=== PATIENT | female | born 1965 | race Hispanic/Latino ===

== ENCOUNTER 2019-04-25 11:53 | Outpatient (CLI) | payer OTHER ==
[2019-04-25 13:31] LABS: #Eosinphils 0.2 thou/uL (0.0-0.7); #Lymphocytes 1.4 thou/uL (1.20-3.40); #Monocytes 0.3 thou/uL (0.11-0.59); #Neutrophils 3.1 thou/uL (1.40-6.50); %Basophils 0.2 % (0.0-1.0); %Eosinophils 3.9 % (0.0-10.0); %Lymphocytes 27.5 % (21.0-51.0); %Monocytes 6.3 % (0.0-10.0); Hemoglobin 13.8 g/dL (12.0-16.0); Mean Corpuscular HGB CONC 32.7 g/dL (32.0-36.0); Mean Corpuscular Hemoglobin 30.3 pg (27.0-31.0); Mean Corpuscular Volume 92.4 fL (78.0-98.0); Mean Platelet Volume 9.3 fL (7.4-10.4); Platelet Count 144 thou/uL (130-400); RBC Distribution Width 11.9 % (11.5-14.5); Red Blood Cell (RBC) Count 4.56 mill/uL (4.20-5.40)
[2019-04-25 13:48] LABS: Anion Gap 7 mmol/L (10-20); BUN (Urea Nitrogen) 18 mg/dL (9.8-20.1); Calc. Creatinine Clearance 0 mL/min (70-130); Calcium 9.5 mg/dL (7.8-10.44); Carbon Dioxide 32 mmol/L (22-29); Chloride 105 mmol/L (98-107); Estimated GFR-MDRD Greater than 90; Glucose 104 mg/dL (70-105); Potassium 3.8 mmol/L (3.5-5.1); Sodium 140 mmol/L (136-145)
== END 2019-04-25 11:54 | disposition home or self-care (01) ==
LOC: LABBT 11:53
PROVIDERS: ATTEND Surgery
DX: Z01.812 Encounter for preprocedural laboratory examination (principal); K40.90 Unilateral inguinal hernia, without obstruction or gangrene, not specified as recurrent; K42.9 Umbilical hernia without obstruction or gangrene
CPT/HCPCS: 80048; 85025

== ENCOUNTER 2019-05-06 11:31 | Day surgery (SDC) | payer OTHER ==
[2019-04-25 12:12] VITALS: BMI 24.1
[~2019-05-06 11:31] MED LIST: Dexamethasone 20 MG/5 ML VIAL ONE; Lidocaine 1% PF 5 ML VIAL ONE; Ondansetron PF 4 MG/2 ML Vial ONE; PHENYLEPHRINE-NS 100 MCG/ML 10 ML SYRINGE ONE; PROPOFOL 200 MG/20 ML VIAL ONE; ePHEDrine/0.9% NaCl/PF SYRINGE 50 mg/10 ml ONE
[2019-05-06] MEDS ORDERED: Bupivacaine PF 0.5% 30 ML VIAL ONE ×2 (13:28→13:30)
[2019-05-06] MEDS ORDERED: Ketorolac Tromethamine 30 MG/ML VIAL ONE (13:36)
[2019-05-06] MEDS ORDERED: Fentanyl 100 MCG/2 ML VIAL ONE (13:40)
[2019-05-06] MEDS ORDERED: PROPOFOL 20 ML ONE (13:58)
[2019-05-06] MEDS ORDERED: Lidocaine 1% w/Epinephrine 1:100K 20 ML VIAL ONE (14:13)
--- NOTE | 2019-05-11 22:54 | PDOC.OP ---
Operative Note - Operative Note Operative Note: DATE OF SERVICE: (autofill for todays date if possible) PREOPERATIVE DIAGNOSIS: Right inguinal hernia and umbilical hernia. POSTOPERATIVE DIAGNOSIS: Right inguinal hernia and umbilical hernia. PROCEDURE: Repair of right inguinal hernia with mesh and repair of umbilical hernia with suture. HISTORY: 53-year-old woman with an enlarging right inguinal hernia who desires operative repair. She was also noted incidentally to have a small umbilical hernia and repair of this under the same anesthesia was recommended. DESCRIPTION OF PROCEDURE: After informed consent was obtained and appropriate preoperative antibiotics were administered, the patient was taken to the operating room, placed in the supine position and general endotracheal anesthesia was administered. The umbilical hernia was addressed first. Local anesthesia was infused the skin and subcutaneous tissues overlying the hernia and dissection carried down to the hernia which was found to contain preperitoneal fat only. This was reduced through the fascial defect which was under 5 mm in size. This was repaired primarily with a [id number] suture with excellent technical result. Hemostasis was verified and the subcutaneous tissues were closed with 3-0 subcutaneous Monocryl suture and the skin was closed with a running subcuticular 4-0 Monocryl suture. Attention was then turned to the inguinal hernia. Local anesthesia was infused to the skin and subcutaneous tissues overlying the inguinal canal. An oblique skin incision was made in the direction of the skin crease. Dissection was carried down to the external oblique aponeurosis which was carefully incised in the direction of its fibers through the enlarged external ring. The aponeurosis was mobilized off the underlying structures. The ilioinguinal nerve was clearly identified. This was coursing superior to the course of the inguinal cord and was mobilized out of the operative field and carefully avoided for the remainder of the case. The inguinal cord was mobilized at the level of the pubic tubercle and the cord contents and floor of the canal were carefully examined. An indirect hernia was identified. The hernia sac was dissected free of the cord contents down to the level of the peritoneal reflection. The hernia sac was opened and was empty but became quite thick at the base, causing concern for possible protrusion of bladder into the hernia sac. The thin part of the hernia sac was excised and the sac closed with a running 3-0 Vicryl suture. The round ligament was suture ligated and the stump allowed to retract into the abdominal cavity. The base of the hernia sac was tied to the base of the Perfix plug. The Perfix plug was then placed into the internal ring and was tacked down to the internal oblique in a couple of locations. The patch was then secured to the pubic tubercle inferiorly, to the shelving edge of the inguinal ligament laterally, and secured at intervals to the internal oblique medially. The operative site was irrigated and hemostasis verified. Local anesthesia was infused into the muscles of the internal oblique medially. An On -Q pain pump was obtained and tunneled from the operative site to the skin exiting laterally. The tubing was primed and placed into the inguinal canal. The external oblique aponeurosis was then closed with 2-0 Vicryl suture, taking care not to pull up any of the underlying cord contents into the closure, and additional local anesthesia infused into the inguinal canal. The remainder of the local was infused into the subcutaneous tissues circumferentially and to the skin. Susan's fascia was reapproximated with 3-0 Monocryl sutures and the skin was closed with 4-0 subcuticular Monocryl sutures. Dermabond dressings were placed to both incisions and the On-Q pain pump tubing dressed with Tegaderm. A cotton ball and Tegaderm dressing was placed to the umbilicus. The patient was extubated and taken to the recovery room in good condition. Estimated blood loss was minimal. There were no complications. SPECIMENS: Right inguinal hernia sac, partial.
== END 2019-05-06 18:00 | disposition home or self-care (01) ==
LOC: SDC 11:31
PROVIDERS: ATTEND Surgery
PROC: 0WQF0ZZ Repair Abdominal Wall, Open Approach (ICD-10-PCS; principal; 2019-05-06)
PROC: 0YU50JZ Supplement Right Inguinal Region with Synthetic Substitute, Open Approach (ICD-10-PCS; principal; 2019-05-06)
DX: K40.90 Unilateral inguinal hernia, without obstruction or gangrene, not specified as recurrent (principal); K42.9 Umbilical hernia without obstruction or gangrene
CPT/HCPCS: 88302; A4306; C1781; J0131; J0690; J1100; J1885; J2001; J2405; J2704; J3010; S0020

== ENCOUNTER 2022-06-05 07:50 | Outpatient (CLI) | payer BC, OTHER | END 2022-06-05 07:51 | disposition home or self-care (01) | LOC: BICMAMMO 07:50 | PROVIDERS: ATTEND Family Medicine | DX: Z12.31 Encounter for screening mammogram for malignant neoplasm of breast (principal) | CPT/HCPCS: 77063; 77067 ==

== ENCOUNTER 2023-06-17 07:53 | Outpatient (CLI) | payer BC | END 2023-06-17 07:54 | disposition home or self-care (01) | LOC: BICMAMMO 07:53 | PROVIDERS: ATTEND Family Medicine | DX: Z12.31 Encounter for screening mammogram for malignant neoplasm of breast (principal) | CPT/HCPCS: 77063; 77067 ==

== ENCOUNTER 2024-05-04 08:05 | Outpatient (CLI) | payer BC | END 2024-05-04 08:06 | disposition home or self-care (01) | LOC: BICRAD 08:05 | PROVIDERS: ATTEND Family Medicine | DX: M25.552 Pain in left hip (principal); M25.562 Pain in left knee; M25.462 Effusion, left knee; M89.9 Disorder of bone, unspecified ==

== ENCOUNTER 2024-06-22 08:03 | Outpatient (CLI) | payer BC | END 2024-06-22 08:04 | disposition home or self-care (01) | LOC: BICMAMMO 08:03 | PROVIDERS: ATTEND Family Medicine | DX: Z12.31 Encounter for screening mammogram for malignant neoplasm of breast (principal) | CPT/HCPCS: 77063; 77067 ==